=== PATIENT | female | born 1960 | race Two or more races ===

== ENCOUNTER 2018-01-31 10:00 | Outpatient (CLI) | payer OTHER | END 2018-01-31 10:14 | disposition home or self-care (01) | LOC: SONOGRAMA 10:00 → MAMO-SONO 10:15 | DX: N84.0 Polyp of corpus uteri (principal); N93.8 Other specified abnormal uterine and vaginal bleeding; R10.2 Pelvic and perineal pain ==

== ENCOUNTER 2019-02-13 12:01 | Emergency (ER) | payer OTHER ==
[~2019-02-13] VITALS: Ht 152.4 cm; Wt 49.9 kg
[2019-02-13] MEDS ORDERED: PROMETRIUM200 MG (12:14)
== END 2019-02-13 19:58 | disposition home or self-care (01) ==
LOC: ER 12:01
DX: R10.32 Left lower quadrant pain (principal)

== ENCOUNTER 2019-02-18 17:38 | Outpatient (CLI) | payer OTHER ==
[~2019-02-18 17:38] MED LIST: PROMETRIUM200 MG
== END 2019-02-18 18:00 | disposition home or self-care (01) ==
LOC: RAD 17:38
DX: R10.2 Pelvic and perineal pain (principal)

== ENCOUNTER 2021-03-22 17:05 | Emergency (ER) | payer OTHER ==
[~2021-03-22] VITALS: Ht 152.4 cm; Wt 53.3 kg
[2021-03-22] MEDS ORDERED: NORFLEX100MG PO (23:00)
[2021-03-22] MEDS ORDERED: MEDROLPACK PO (23:00)
== END 2021-03-22 23:14 | disposition home or self-care (01) ==
LOC: ER 17:05
DX: M94.0 Chondrocostal junction syndrome [Tietze] (principal); K59.09 Other constipation